=== PATIENT | male | born 1975 | race Caucasian/White ===

== ENCOUNTER 2019-06-27 13:58 | Emergency (ER) | payer SELFPAY ==
[~2019-06-27] VITALS: Ht 170.2 cm; Wt 72.6 kg
[2019-06-27 13:58] VITALS: BP 145/96
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
--- NOTE | 2019-06-27 14:35 | NUR ---
ED Nurse Note: pt to ct with [employer] present
[2019-06-27 14:48] LABS: BASOPHILS % (AUTO) 0.9 % (0.0-2.0); HEMATOCRIT 47.1 % (42.0-52.0); HEMOGLOBIN 17.1 G/DL (14.2-18.0); LYMPHOCYTES % (AUTO) 19.5 % (20.0-45.0); MEAN CORPUSCULAR VOLUME 88 FL (80-99); MONOCYTES % (AUTO) 4.6 % (1.0-10.0); PLATELET COUNT 264 K/UL (150-450); RED BLOOD COUNT 5.35 M/UL (4.70-6.10); RED CELL DISTRIBUTION WIDTH 10.1 % (11.6-14.8); WHITE BLOOD COUNT 11.9 K/UL (4.8-10.8)
[2019-06-27 15:14] LABS: ANION GAP 18 mmol/L (5-15); BLOOD UREA NITROGEN 11 mg/dL (7-18); CALCIUM 9.3 MG/DL (8.5-10.1); CARBON DIOXIDE 22 MMOL/L (21-32); CHLORIDE 106 MMOL/L (98-107); CREATININE 1.3 MG/DL (0.55-1.30); POTASSIUM 3.9 MMOL/L (3.5-5.1); SODIUM 146 MMOL/L (136-145)
--- NOTE | 2019-06-27 15:19 | Diagnostic Imaging Report ---
Indications: Altered mental status Technique: Spiral acquisitions obtained through the brain. Angled axial and coronal 5 x 5 mm slices were reconstructed. Total dose length product 1205 mGycm. CTDI vol(s) 53 mGy. Dose reduction achieved using automated exposure control Comparison: None. Findings: No acute intracranial hemorrhage or edema. No mass effect nor midline shift. Normal bush-white differentiation. Intact calvarium. Visualized orbits and sinuses are unremarkable. The mastoids are clear. Impression: Negative The CT scanner at [facility] is accredited by the [employer] and the scans are performed using protocols designed to limit radiation exposure to as low as reasonably achievable to attain images of sufficient resolution adequate for diagnostic evaluation.
[2019-06-27 15:27] LABS: ALANINE AMINOTRANSFERASE 45 U/L (12-78); ALBUMIN/GLOBULIN RATIO 1.2 (1.0-2.7); ALKALINE PHOSPHATASE 102 U/L (46-116); ASPARTATE AMINO TRANSFERASE 52 U/L (15-37); BILIRUBIN,TOTAL 0.6 MG/DL (0.2-1.0)
--- NOTE | 2019-06-27 15:38 | NUR ---
ED Nurse Note: [employer] still by bed side, patient AAO x4, VSS at this time, patient refusing straght catheter.
--- NOTE | 2019-06-27 15:44 | Diagnostic Imaging Report ---
Indication: Right hand pain Technique: 3 views right hand Comparison: none Findings: No acute fractures. No dislocations. The joint spaces are preserved. Impression: Negative
[2019-06-27] MEDS ORDERED: Haloperidol Lactate 5 MG in D5W 55 ML IVPB ONE (16:00)
[2019-06-27] MEDS ORDERED: DiphenhydrAMINE 50mg/ml Inj IVP ONE (16:00)
--- NOTE | 2019-06-27 16:08 | NUR ---
ED Nurse Note: Patient was placed on 5150 hold by [employer], all belongings were placed in locker # 1.
--- NOTE | 2019-06-27 19:00 | NUR ---
ED Nurse Note: NDT INSPECTOR bedside as sitter.
[2019-06-27 19:15] VITALS: BP 130/80
--- NOTE | 2019-06-27 19:15 | NUR ---
ED Nurse Note: Report received from DANE Santoro. Pt is sleeping, no acute distress noted.
--- NOTE | 2019-06-27 20:00 | NUR ---
ED Nurse Note: Pt is calm and cooperative, following commands.
[2019-06-27 20:10] LABS: APPEARANCE,URINE SLIGHTLY CLOUDY; BILIRUBIN, URINE NEGATIVE (NEGATIVE); COLOR,URINE PALE YELLOW; GLUCOSE, URINE (UA) NEGATIVE (NEGATIVE); KETONES,URINE 2+ (NEGATIVE); LEUKOCYTE ESTERASE ,URINE 2+ (NEGATIVE); NITRITE,URINE NEGATIVE (NEGATIVE); PH,URINE 5 (4.5-8.0); PROTEIN,URINE 1+ (NEGATIVE); UROBILINOGEN,URINE NORMAL MG/DL (0.0-1.0)
--- NOTE | 2019-06-27 22:00 | NUR ---
ED Nurse Note: Pt is awake and alert, no acute distress. Pt is being cooperative at this time. HOUSE PIPING INSPECTOR bedside as sitter.
[2019-06-27] MEDS ORDERED: cefTRIAXone 1 GM in NS 55 ML IVPB ONE (22:15)
--- NOTE | 2019-06-28 | NUR ---
ED Nurse Note: Pt is sleeping at this time. NAD. Will continue to monitor.
[2019-06-28 01:15] VITALS: BP 127/99
--- NOTE | 2019-06-28 01:15 | NUR ---
ED Nurse Note: Pt is resting in bed with eyes closed, no acute distress. Safety measures in place and ENGINEERING INSPECTION ASSISTANT bedside as sitter. Pt is calm, not aggressive. Vital signs are stable.
--- NOTE | 2019-06-28 03:47 | NUR ---
HAND-OFF: Report given to ADNE Amaro.
--- NOTE | 2019-06-28 03:49 | NUR ---
ED Nurse Note: Received report from Loreta VELA. Pt seen sleeping in bed. No acute distress noted. Safety and comfort provided. Sitter at bedside.
--- NOTE | 2019-06-28 07:17 | NUR ---
ED Nurse Note: Report received from DANE Amaro. Pt resting in bed with no signs of distress. Respirations even and unlabored on room air. Vitals stable as documented. Pt on 5150 hold, calm and cooperative @ this time.
--- NOTE | 2019-06-28 07:55 | NUR ---
ED Nurse Note: Pt awake and denies SI/HI. Pt said he was "just walking around with no shoes on" and also reports "I am not a danger to myself." Pt aware he is on a hold. Juice given to patient.
[2019-06-28 08:00] VITALS: BP 132/94
--- NOTE | 2019-06-28 11:45 | NUR ---
ED Nurse Note: 5150 hold lifted
[2019-06-28 11:52] VITALS: BP 127/91
--- NOTE | 2019-06-28 12:57 | NUR ---
ED Nurse Note: Pt reports having a place of residence with [address] [place] [address]
[2019-06-28 13:00] VITALS: BP 121/87
--- NOTE | 2019-06-28 13:00 | NUR ---
Homeless Discharge: Patient is being discharged from medical care. Awake, alert and oriented x4. After care instructions, including referral to community resources were given. Patient verbalized understanding of After care instructions; at this time patient does not request medications, equipment or placement. Patient signed patient consent in the medical record for patient destination upon discharge. All medical devices such as IV and ID band were removed. Patient ambulated out with all personal belongings with steady gait. Pt reports having a place of residence, but signed paperwork anyway
--- NOTE | 2019-06-29 02:00 | Consultation ---
DATE OF CONSULTATION: HISTORY OF PRESENT ILLNESS: This is a 43-year-old male with a history of substance use disorder who is being admitted to the hospital on . Upon evaluation, the patient is denying any suicidal ideations. His urine toxicology is positive for meth, benzodiazepine and marijuana. The patient stated that he is on disability and he gets $5000 a month. He lives in his own apartment and he has a psychiatrist and has not been taking his psychotropic medications. He is denying any suicidal or homicidal ideations. He is calm and cooperative. PAST PSYCHIATRIC HISTORY: Significant for depression and anxiety. PAST MEDICAL HISTORY: As above. ALLERGIES: No known drug allergies. SUBSTANCE ABUSE HISTORY: Meth, benzodiazepine and . MENTAL STATUS EXAMINATION: Alert and oriented to times, self, place, and situation. Mood is neutral. Affect is full range, congruent with mood. Thought process is linear and goal oriented. Thought content, no suicidal or homicidal ideations. ASSESSMENT: AXIS I: 1. Polysubstance dependence. 2. Major depressive disorder. AXIS II: Deferred. AXIS III: As above. AXIS IV: Low. AXIS V: 20. PLAN: 1. The patient will be continued on current psychotropic medications from outpatient psychiatrist. 2. The patient is not an imminent danger to self or others. 3. Release hold. Discharge the patient and recommend to follow up with his psychiatrist. Azul Mckeon M.D. DR: Vish JOB#: [id number] CC:
== END 2019-06-28 13:00 | disposition home or self-care (01) ==
LOC: EDBD 13:58 → EMR 16:48
DX: F91.9 Conduct disorder, unspecified (principal)
CPT/HCPCS: 36415; 70450; 73130; 80053; 80307; 81003; 85025; 87086; 96361; 96365; 96375; 99285; G0480; J0696; J1200; J1630; J7030